=== PATIENT | male | born 1960 | race Caucasian/White ===

== ENCOUNTER 2018-09-10 19:28 | Emergency (ER) | payer OTHER ==
[2018-09-10 22:08] LABS: ADD MAN DIFF? NO
[2018-09-10 22:10] LABS: WHITE BLOOD COUNT 6.2 10^3/ul (4.8-10.8)
[2018-09-10 22:10] LABS: BASOPHILS % 0.3 % (0.0-2.0); EOSINOPHILS # 0.1 10^3/ul (0.0-0.5); EOSINOPHILS % 0.8 % (0.0-7.0); HEMATOCRIT 30.7 % (42.0-52.0); HEMOGLOBIN 11.2 g/dl (14.0-18.0); LYMPHOCYTES # 1.2 10^3/ul (0.8-2.9); LYMPHOCYTES % 19.3 % (15.0-51.0); MEAN CORPUSCULAR HGB CONC 36.5 g/dl (32.0-37.0); MEAN CORPUSCULAR VOLUME 87.7 fl (82.0-101.0); MEAN PLATELET VOLUME 9.5 fl (7.4-10.4); MONOCYTE # 0.6 10^3/ul (0.3-0.9); MONOCYTES % 10.1 % (0.0-11.0); NEUTROPHIL # 4.3 10^3/ul (1.6-7.5); NEUTROPHILS % 69.2 % (39.0-77.0); PLATELET COUNT 109 10^3/UL (140-415); RED CELL DISTRIBUTION WIDTH 13.9 % (11.5-14.5)
[2018-09-10 22:13] LABS: PLATELET COUNT 111 10^3/UL (140-415)
[2018-09-10 22:32] LABS: INR 1.02; PARTIAL THROMBOPLASTIN TIME 31.6 Sec (23.0-35.0); PROTIME 13.5 Sec (11.9-14.9); PT RATIO 1.1
[2018-09-10 22:33] LABS: ALANINE AMINOTRANSFERASE 34 IU/L (13-69); ALBUMIN 3.7 g/dl (3.3-4.9); ALBUMIN/GLOBULIN RATIO 1.08; ALKALINE PHOSPHATASE 93 IU/L (42-121); ANION GAP 8 (5-13); ASPARTATE AMINO TRANSFERASE 39 IU/L (15-46); BLOOD UREA NITROGEN 33 mg/dl (7-20); CALCIUM 8.9 mg/dl (8.4-10.2); CARBON DIOXIDE 31 mmol/L (21-31); CHLORIDE 96 mmol/L (97-110); CREATININE 1.13 mg/dl (0.61-1.24); Estimated GFR > 60 mL/min (>60); GLUCOSE 251 mg/dl (70-220); POTASSIUM 3.5 mmol/L (3.5-5.1); SODIUM 135 mmol/L (135-144); TOTAL PROTEIN 7.1 g/dl (6.1-8.1)
[2018-09-10 23:02] LABS: THROMBIN TIME 15.9 SEC (13.8-19.1)
[2018-09-10] MEDS: morphine 2 MG INJ IV (23:04)
== END 2018-09-11 01:25 | disposition short-term general hospital (02) ==
LOC: E/R 09-11 01:25 → FTE 19:28
DX: S72.032A Displaced midcervical fracture of left femur, initial encounter for closed fracture (principal); M79.605 Pain in left leg; W01.0XXA Fall on same level from slipping, tripping and stumbling without subsequent striking against object, initial encounter; Y92.9 Unspecified place or not applicable
CPT/HCPCS: 36415; 71045; 73550; 73590; 80053; 85025; 85049; 85610; 85670; 85730; 96374; 99285-25

== ENCOUNTER 2019-03-09 15:32 | Inpatient (IN) | payer OTHER ==
[2019-03-09 15:53] LABS: ADD MAN DIFF? NO
[2019-03-09 15:59] LABS: BASOPHILS % 0.3 % (0.0-2.0); EOSINOPHILS % 0.6 % (0.0-7.0); HEMATOCRIT 29.6 % (42.0-52.0); HEMOGLOBIN 10.6 g/dl (14.0-18.0); LYMPHOCYTES % 28.3 % (15.0-51.0); MEAN CORPUSCULAR HEMOGLOBIN 32.4 pg (29.0-33.0); MEAN CORPUSCULAR HGB CONC 35.8 g/dl (32.0-37.0); MEAN CORPUSCULAR VOLUME 90.5 fl (82.0-101.0); MEAN PLATELET VOLUME 10.1 fl (7.4-10.4); MONOCYTE # 0.3 10^3/ul (0.3-0.9); MONOCYTES % 7.5 % (0.0-11.0); NEUTROPHIL # 2.2 10^3/ul (1.6-7.5); PLATELET COUNT 113 10^3/UL (140-415); RED BLOOD COUNT 3.27 10^6/ul (4.70-6.10); RED CELL DISTRIBUTION WIDTH 13.7 % (11.5-14.5)
[2019-03-09 15:59] LABS: WHITE BLOOD COUNT 3.5 10^3/ul (4.8-10.8)
[2019-03-09 16:17] LABS: ANION GAP 6 (5-13); BLOOD UREA NITROGEN 19 mg/dl (7-20); CALCIUM 8.7 mg/dl (8.4-10.2); CARBON DIOXIDE 31 mmol/L (21-31); CHLORIDE 94 mmol/L (97-110); CREATININE 0.81 mg/dl (0.61-1.24); Estimated GFR > 60 mL/min (>60); SODIUM 131 mmol/L (135-144)
[2019-03-09 16:20] LABS: MODE ROOM AIR; MetHgb Venous 0.4 %; Sample Type Blood venous; Site VENOUS LINE; Venous COHb 0.3 %; Venous Fraction OxyHgb 55.6 %; Venous Total Hemglobin 12.3 g/dl
[2019-03-09 16:24] LABS: GLUCOSE 540 mg/dl (70-220)
[2019-03-09 16:29] LABS: TROPONIN-I < 0.012 ng/ml (0.000-0.120)
[2019-03-09 16:37] LABS: PHOSPHORUS 3.6 mg/dl (2.5-4.9)
[2019-03-09] MEDS: DIPHTH/TET/ACEL PERTUSS (ADULT) 0.5 ML VIAL IM* (16:37)
[2019-03-09] MEDS: INSULIN LISPRO 100 UNIT/ML VIAL SC (17:58)
[2019-03-09] MEDS: SOD CHLORIDE 0.9% 1,000 ML IV ×2 (17:59→22:52)
[2019-03-09] MEDS: ACCU-CHEK XX (20:07)
[2019-03-09] MEDS ORDERED: ALBUTEROL/IPRATROPIUM (NEB) 3 ML AMP HHN (22:00)
[2019-03-09] MEDS ORDERED: ONDANSETRON 4 MG INJ IV (22:00)
[2019-03-09] MEDS ORDERED: ACETAMINOPHEN 325 MG TAB PO (22:00)
[2019-03-09] MEDS ORDERED: GLUCOSE GEL 15 GRAM TUBE PO ×2 (22:30)
[2019-03-09] MEDS ORDERED: GLUCAGON 1 MG INJ IM (22:30)
[2019-03-09] MEDS ORDERED: DEXTROSE 50% 50 ML SYRINGE IV ×2 (22:30)
[2019-03-09] MEDS ORDERED: GLUCOSE GEL 15 GRAM TUBE BUCCAL (22:30)
[2019-03-10 00:01] LABS: CREATINE KINASE 65 IU/L (23-200)
[2019-03-10 00:13] LABS: CK INDEX 3.8; TROPONIN-I < 0.012 ng/ml (0.000-0.120)
[2019-03-10 00:15] LABS: CK-MB 2.45 ng/ml (0.0-2.4)
[2019-03-10] MEDS: ACCU-CHEK XX ×5 (02:00→21:43)
[2019-03-10 05:20] LABS: ADD MAN DIFF? NO
[2019-03-10 05:23] LABS: WHITE BLOOD COUNT 5.3 10^3/ul (4.8-10.8)
[2019-03-10 05:23] LABS: BASOPHILS % 0.2 % (0.0-2.0); EOSINOPHILS % 0.2 % (0.0-7.0); LYMPHOCYTES # 0.8 10^3/ul (0.8-2.9); LYMPHOCYTES % 15.6 % (15.0-51.0); MEAN CORPUSCULAR HEMOGLOBIN 32.5 pg (29.0-33.0); MEAN CORPUSCULAR HGB CONC 36.7 g/dl (32.0-37.0); MEAN CORPUSCULAR VOLUME 88.8 fl (82.0-101.0); MEAN PLATELET VOLUME 10.1 fl (7.4-10.4); MONOCYTE # 0.3 10^3/ul (0.3-0.9); MONOCYTES % 6.1 % (0.0-11.0); NEUTROPHIL # 4.1 10^3/ul (1.6-7.5); NEUTROPHILS % 77.5 % (39.0-77.0); PLATELET COUNT 122 10^3/UL (140-415); RED BLOOD COUNT 3.38 10^6/ul (4.70-6.10); RED CELL DISTRIBUTION WIDTH 13.4 % (11.5-14.5)
[2019-03-10 05:37] LABS: HEMOGLOBIN A1C 12.9 % (0-5.9)
[2019-03-10 05:45] LABS: CREATINE KINASE 62 IU/L (23-200)
[2019-03-10 05:57] LABS: CK INDEX 3.7; CK-MB 2.29 ng/ml (0.0-2.4); TROPONIN-I < 0.012 ng/ml (0.000-0.120)
[2019-03-10 06:12] LABS: ALANINE AMINOTRANSFERASE 175 IU/L (13-69); ALBUMIN 2.9 g/dl (3.3-4.9); ALBUMIN/GLOBULIN RATIO 1.07; ALKALINE PHOSPHATASE 167 IU/L (42-121); ANION GAP 4 (5-13); ASPARTATE AMINO TRANSFERASE 84 IU/L (15-46); BILIRUBIN,INDIRECT 0.8 mg/dl (0-1.1); BILIRUBIN,TOTAL 0.8 mg/dl (0.2-1.3); BLOOD UREA NITROGEN 20 mg/dl (7-20); CALCIUM 8.2 mg/dl (8.4-10.2); CARBON DIOXIDE 30 mmol/L (21-31); CHLORIDE 100 mmol/L (97-110); CHOL/HDL RATIO 2.7 RATIO; CHOLESTEROL 162 mg/dl (100-200); CREATININE 0.59 mg/dl (0.61-1.24); Estimated GFR > 60 mL/min (>60); GLUCOSE 260 mg/dl (70-220); HDL CHOLESTEROL 58 mg/dl (28-71); LDL CHOLESTEROL,CALCULATED 80 mg/dl; MAGNESIUM 1.8 mg/dl (1.7-2.5); POTASSIUM 3.6 mmol/L (3.5-5.1); SODIUM 134 mmol/L (135-144); TOTAL PROTEIN 5.6 g/dl (6.1-8.1); TRIGLYCERIDES 119 mg/dl (0-149)
[2019-03-10] MEDS: metFORMIN 500 MG TAB PO ×2 (08:05→17:14)
[2019-03-10] MEDS: AMLODIPINE 5 MG TAB PO (08:05)
[2019-03-10] MEDS: LISINOPRIL 10 MG TAB PO (08:06)
[2019-03-10] MEDS: INSULIN ASPART [NOVOLOG] 3 ML PEN SC ×4 (08:11→21:42)
[2019-03-10] MEDS: SOD CHLORIDE 0.9% 1,000 ML IV ×2 (10:19→12:55)
[2019-03-10] MEDS: REPAGLINIDE 1 MG TAB PO (17:14)
[2019-03-10] MEDS: LINAGLIPTIN 5 MG TABLET PO (17:14)
[2019-03-10] MEDS ORDERED: INSULIN GLARGINE [LANTus] (100 UNITS/ML) SYG SC (20:00)
[2019-03-10] MEDS: ATORVASTATIN 40 MG TAB PO (20:42)
[2019-03-11] MEDS: ACCU-CHEK XX ×5 (02:01→20:32)
[2019-03-11] MEDS: SOD CHLORIDE 0.9% 1,000 ML IV (04:55)
[2019-03-11 06:14] LABS: ADD MAN DIFF? NO
[2019-03-11 06:20] LABS: BASOPHILS % 0.3 % (0.0-2.0); EOSINOPHILS # 0.1 10^3/ul (0.0-0.5); EOSINOPHILS % 1.3 % (0.0-7.0); HEMATOCRIT 27.6 % (42.0-52.0); HEMOGLOBIN 10.1 g/dl (14.0-18.0); LYMPHOCYTES # 1.1 10^3/ul (0.8-2.9); LYMPHOCYTES % 27.3 % (15.0-51.0); MEAN CORPUSCULAR HEMOGLOBIN 32.7 pg (29.0-33.0); MEAN CORPUSCULAR HGB CONC 36.6 g/dl (32.0-37.0); MEAN CORPUSCULAR VOLUME 89.3 fl (82.0-101.0); MONOCYTE # 0.4 10^3/ul (0.3-0.9); MONOCYTES % 9.9 % (0.0-11.0); NEUTROPHIL # 2.4 10^3/ul (1.6-7.5); NEUTROPHILS % 60.7 % (39.0-77.0); PLATELET COUNT 134 10^3/UL (140-415); RED BLOOD COUNT 3.09 10^6/ul (4.70-6.10); RED CELL DISTRIBUTION WIDTH 13.6 % (11.5-14.5)
[2019-03-11 06:53] LABS: ALANINE AMINOTRANSFERASE 113 IU/L (13-69); ALBUMIN 2.5 g/dl (3.3-4.9); ALKALINE PHOSPHATASE 153 IU/L (42-121); ASPARTATE AMINO TRANSFERASE 50 IU/L (15-46); BILIRUBIN,INDIRECT 0.4 mg/dl (0-1.1); BILIRUBIN,TOTAL 0.4 mg/dl (0.2-1.3); TOTAL PROTEIN 5.1 g/dl (6.1-8.1)
[2019-03-11 06:55] LABS: ANION GAP 4 (5-13); BLOOD UREA NITROGEN 24 mg/dl (7-20); CALCIUM 8.5 mg/dl (8.4-10.2); CARBON DIOXIDE 26 mmol/L (21-31); CHLORIDE 106 mmol/L (97-110); CREATININE 0.73 mg/dl (0.61-1.24); Estimated GFR > 60 mL/min (>60); GLUCOSE 112 mg/dl (70-220); MAGNESIUM 1.7 mg/dl (1.7-2.5); PHOSPHORUS 3.9 mg/dl (2.5-4.9); POTASSIUM 3.5 mmol/L (3.5-5.1); SODIUM 136 mmol/L (135-144)
[2019-03-11] MEDS: INSULIN ASPART [NOVOLOG] 3 ML PEN SC ×4 (07:47→20:31)
[2019-03-11] MEDS: metFORMIN 500 MG TAB PO ×2 (08:17→17:09)
[2019-03-11] MEDS: LISINOPRIL 10 MG TAB PO (08:17)
[2019-03-11] MEDS: REPAGLINIDE 1 MG TAB PO ×3 (08:18→17:09)
[2019-03-11] MEDS: LINAGLIPTIN 5 MG TABLET PO (08:18)
[2019-03-11] MEDS: AMLODIPINE 5 MG TAB PO (08:18)
[2019-03-11] MEDS: ATORVASTATIN 40 MG TAB PO (20:28)
[2019-03-11] MEDS: LABETALOL HCL 20MG INJ IV (20:29)
[2019-03-12] MEDS: ACCU-CHEK XX ×3 (02:00→11:50)
[2019-03-12 05:38] LABS: ADD MAN DIFF? NO
[2019-03-12 05:43] LABS: BASOPHILS % 0.5 % (0.0-2.0); EOSINOPHILS # 0.1 10^3/ul (0.0-0.5); EOSINOPHILS % 1.5 % (0.0-7.0); HEMATOCRIT 28.4 % (42.0-52.0); HEMOGLOBIN 10.4 g/dl (14.0-18.0); MEAN CORPUSCULAR HEMOGLOBIN 32.9 pg (29.0-33.0); MEAN CORPUSCULAR HGB CONC 36.6 g/dl (32.0-37.0); MEAN CORPUSCULAR VOLUME 89.9 fl (82.0-101.0); MEAN PLATELET VOLUME 9.2 fl (7.4-10.4); MONOCYTE # 0.5 10^3/ul (0.3-0.9); MONOCYTES % 11.7 % (0.0-11.0); NEUTROPHIL # 2.4 10^3/ul (1.6-7.5); NEUTROPHILS % 60.8 % (39.0-77.0); PLATELET COUNT 136 10^3/UL (140-415); RED BLOOD COUNT 3.16 10^6/ul (4.70-6.10); RED CELL DISTRIBUTION WIDTH 13.4 % (11.5-14.5)
[2019-03-12 05:43] LABS: WHITE BLOOD COUNT 3.9 10^3/ul (4.8-10.8)
[2019-03-12 06:14] LABS: ANION GAP 3 (5-13); BLOOD UREA NITROGEN 24 mg/dl (7-20); CALCIUM 8.5 mg/dl (8.4-10.2); CARBON DIOXIDE 29 mmol/L (21-31); CHLORIDE 104 mmol/L (97-110); CREATININE 0.74 mg/dl (0.61-1.24); Estimated GFR > 60 mL/min (>60); GLUCOSE 142 mg/dl (70-220); MAGNESIUM 1.6 mg/dl (1.7-2.5); PHOSPHORUS 3.8 mg/dl (2.5-4.9); POTASSIUM 3.6 mmol/L (3.5-5.1); SODIUM 136 mmol/L (135-144)
[2019-03-12] MEDS: glipiZIDE 5 MG TAB PO (06:32)
[2019-03-12] MEDS: LINAGLIPTIN 5 MG TABLET PO (08:05)
[2019-03-12] MEDS: metFORMIN 500 MG TAB PO (08:05)
[2019-03-12] MEDS: AMLODIPINE 5 MG TAB PO (08:05)
[2019-03-12] MEDS: LISINOPRIL 10 MG TAB PO (08:05)
[2019-03-12] MEDS: INSULIN ASPART [NOVOLOG] 3 ML PEN SC ×2 (08:08→11:52)
[2019-03-12 10:03] LABS: ALANINE AMINOTRANSFERASE 102 IU/L (13-69); ALBUMIN 2.7 g/dl (3.3-4.9); ALKALINE PHOSPHATASE 179 IU/L (42-121); ASPARTATE AMINO TRANSFERASE 43 IU/L (15-46); BILIRUBIN,INDIRECT 0.4 mg/dl (0-1.1); BILIRUBIN,TOTAL 0.4 mg/dl (0.2-1.3); TOTAL PROTEIN 5.5 g/dl (6.1-8.1)
[2019-03-12] MEDS: MAGNESIUM SULFATE 2 GM/50 ML 50 ML IVPB (11:45)
== END 2019-03-12 15:06 | disposition home health service (06) | DRG 638 ==
LOC: E/R 15:32 → 6WM 17:44
PROVIDERS: Internal Medicine
DX: E11.65 Type 2 diabetes mellitus with hyperglycemia (principal); E87.1 Hypo-osmolality and hyponatremia; L97.419 Non-pressure chronic ulcer of right heel and midfoot with unspecified severity; Z68.1 Body mass index [BMI] 19.9 or less, adult; D61.818 Other pancytopenia; E11.621 Type 2 diabetes mellitus with foot ulcer; E11.8 Type 2 diabetes mellitus with unspecified complications; R55 Syncope and collapse; E78.5 Hyperlipidemia, unspecified; I10 Essential (primary) hypertension; D64.9 Anemia, unspecified; R63.6 Underweight; S01.81XA Laceration without foreign body of other part of head, initial encounter; W19.XXXA Unspecified fall, initial encounter; Y92.481 Parking lot as the place of occurrence of the external cause
CPT/HCPCS: 36415; 70450; 71045; 76705; 80048; 80053; 80061; 80076; 82550; 82553; 82803; 82962; 83036; 83735; 84100; 84443; 84484; 85025; 90471; 90715; 93005; 93306; 93880; 99285-25; G0378